=== PATIENT | male | born 1955 | race Caucasian/White ===

== ENCOUNTER 2018-08-06 01:57 | Inpatient (IN) | payer MEDICARE, MEDICAID ==
[~2018-08-06] VITALS: Ht 175.3 cm; Wt 62.0 kg
[2018-08-06] MEDS ORDERED: ASPI-496 PO (02:14)
[2018-08-06] MEDS ORDERED: ALBU0.63 NEB (02:14)
[2018-08-06] MEDS ORDERED: LISI-167 PO (02:14)
[2018-08-06] MEDS ORDERED: PENT400T9 PO (02:14)
--- NOTE | 2018-08-06 02:27 | NUR ---
EUGENIA PTS SON
--- NOTE | 2018-08-06 02:54 | NUR ---
ERP at bedside.
[2018-08-06] MEDS ORDERED: NITROGLYCERIN OINT 2%, 1GM TP ONE ×2 (03:30→03:59)
--- NOTE | 2018-08-06 03:31 | NUR ---
PT TO CTA
[2018-08-06] MEDS ORDERED: OMNIPAQUE 350 MG/ML, 100ML BOTTLE ONE (03:55)
--- NOTE | 2018-08-06 04:51 | NUR ---
LAB AT BEDSIDE
--- NOTE | 2018-08-06 05:13 | NUR ---
PT MOVED TO HOSPITAL BED FOR COMFORT. PT ABLE TO TRANSFER TO CHAIR AND BACK INTO BED. POC DISCUSSED. PT DENIES FURTHER NEEDS AT THIS TIME.
[2018-08-06 05:17] LABS: BASOPHILS # (AUTO) 0.04 x10^3/uL (0-0.1); BASOPHILS % (AUTO) 1 % (0-1); EOSINOPHILS % (AUTO) 2 % (1-7); LYMPHOCYTES # (AUTO) 1.15 x10^3/uL (1-3.4); LYMPHOCYTES % (AUTO) 13 % (22-44); MD NO; MEAN CORPUSCULAR HEMOGLOBIN 32.5 pg (27.5-34.5); MEAN CORPUSCULAR HGB CONC 33.7 g/dL (33.2-36.2); MEAN CORPUSCULAR VOLUME 96.5 fL (81-97); MEAN PLATELET VOLUME 7.4 fL (7.4-10.4); MONOCYTES # (AUTO) 0.57 x10^3/uL (0.2-0.8); MONOCYTES % (AUTO) 6 % (2-9); NEUTROPHILS # (AUTO) 7.28 x10^3/uL (1.8-6.8); NEUTROPHILS % (AUTO) 79 % (42-75); PLATELET COUNT 348 x10^3/uL (130-400); RED BLOOD COUNT 4.66 x10^6/uL (4.38-5.82); RED CELL DISTRIBUTION WIDTH 14.2 % (9.4-14.8)
[2018-08-06 05:25] LABS: INTERNATIONAL NORMALIZED RATIO 0.97 (0.93-1.1); PROTHROMBIN TIME 10.2 Seconds (9.6-11.5)
[2018-08-06 05:27] LABS: ANION GAP 7 mmol/L (5-15); CALCIUM 8.1 mg/dL (8.5-10.1); CHLORIDE 103 mmol/L (98-107); CREATININE 0.86 mg/dL (0.7-1.3)
--- NOTE | 2018-08-06 06:04 | NUR ---
PT SLEEPING. VSS. NAD. AWAITING ADMIT BED.
--- NOTE | 2018-08-06 06:46 | NUR ---
Report from Apolinar BOURGEOIS. Pt resting in bed with eyes closed, resp even and unlabored, NADN. Awaiting bed assignment upstairs.
--- NOTE | 2018-08-06 07:14 | NUR ---
Report called to Lyssa BOURGEOIS on card tele. Floor ready for pt transport.
[2018-08-06 08:35] VITALS: BP 134/80
[2018-08-06] MEDS ORDERED: morphine SULFATE 10 MG/ML, 1ML IVPush PRN (10:30)
[2018-08-06] MEDS ORDERED: ACETAMINOPHEN 325 MG TABLET PO PRN (10:30)
[2018-08-06] MEDS ORDERED: LORazepam 0.5MG TABLET PO PRN (10:30)
[2018-08-06] MEDS ORDERED: LORazepam 2 MG/ML, 1ML IV PRN ×3 (10:30)
[2018-08-06] MEDS ORDERED: NITROGLYCERIN 0.4 MG BOTTLE (25 TABS) SL PRN (10:30)
[2018-08-06] MEDS ORDERED: LORazepam 1MG TABLET PO PRN ×2 (10:30)
[2018-08-06] MEDS ORDERED: MAALOX/HYOSCYAMINE/LIDOCAINE 45 ML BTL PO ONE (10:30)
[2018-08-06] MEDS ORDERED: ONDANSETRON 4 MG TABLET PO PRN (10:30)
[2018-08-06] MEDS ORDERED: ALBUTEROL SULFATE 2.5 MG/3 ML NPPB PRN (10:30)
[2018-08-06] MEDS ORDERED: ONDANSETRON 2MG/ML, 2ML IVPush PRN (10:30)
[2018-08-06 11:46] LABS: TROPONIN I < 0.015 ng/mL (0.000-0.045)
[2018-08-06] MEDS: ENOXAPARIN 40 MG/0.4 ML SQ SCH (12:27)
[2018-08-06] MEDS: NICOTINE 21 MG/24 HR PATCH.TD24 TD SCH (12:27)
[2018-08-06] MEDS: SODIUM CHLORIDE 0.9% 1,000 ML IV SCH (12:28)
[2018-08-06 14:30] VITALS: BP 121/79
[2018-08-06] MEDS: PENTOXIFYLLINE 400 MG TABLET.ER PO SCH ×2 (16:43→20:20)
[2018-08-06 17:13] LABS: TROPONIN I < 0.015 ng/mL (0.000-0.045)
[2018-08-06 20:00] VITALS: BP 127/88
[2018-08-06] MEDS: ATORVASTATIN 40 MG TABLET PO SCH (20:20)
[2018-08-07 03:58] VITALS: BP 172/78
[2018-08-07] MEDS: SODIUM CHLORIDE 0.9% 1,000 ML IV SCH ×2 (05:09→22:35)
[2018-08-07 05:11] VITALS: BP 149/81
[2018-08-07 05:58] LABS: BASOPHILS # (AUTO) 0.05 x10^3/uL (0-0.1); BASOPHILS % (AUTO) 1 % (0-1); EOSINOPHILS # (AUTO) 0.21 x10^3/uL (0-0.4); EOSINOPHILS % (AUTO) 3 % (1-7); LYMPHOCYTES # (AUTO) 1.25 x10^3/uL (1-3.4); LYMPHOCYTES % (AUTO) 16 % (22-44); MD NO; MEAN CORPUSCULAR HEMOGLOBIN 32.1 pg (27.5-34.5); MEAN CORPUSCULAR HGB CONC 33.3 g/dL (33.2-36.2); MEAN CORPUSCULAR VOLUME 96.3 fL (81-97); MEAN PLATELET VOLUME 7.9 fL (7.4-10.4); MONOCYTES # (AUTO) 0.49 x10^3/uL (0.2-0.8); MONOCYTES % (AUTO) 6 % (2-9); NEUTROPHILS # (AUTO) 5.72 x10^3/uL (1.8-6.8); NEUTROPHILS % (AUTO) 74 % (42-75); PLATELET COUNT 330 x10^3/uL (130-400); RED BLOOD COUNT 4.45 x10^6/uL (4.38-5.82); RED CELL DISTRIBUTION WIDTH 13.8 % (9.4-14.8)
[2018-08-07 06:04] LABS: ANION GAP 7 mmol/L (5-15); CALCIUM 8.8 mg/dL (8.5-10.1); CHLORIDE 106 mmol/L (98-107); CHOLESTEROL, TOTAL 163 mg/dL (140-239); CREATININE 0.74 mg/dL (0.7-1.3)
[2018-08-07 06:06] LABS: CHOL/HDL RATIO 2.6; HDL CHOL % 39 % (26-37); HDL CHOLESTEROL (DIRECT) 63 mg/dL (40-60); LDL CHOLESTEROL,CALCULATED 80 mg/dL (54-169); LDL/HDL RATIO 1.3 (0.5-3.0); TRIGLYCERIDES 101 mg/dL (50-200); VLDL CHOLESTEROL 20 mg/dL (0-25)
[2018-08-07 06:58] VITALS: BP 149/79
[2018-08-07] MEDS: PENTOXIFYLLINE 400 MG TABLET.ER PO SCH ×3 (07:40→22:34)
[2018-08-07] MEDS: THIAMINE 100MG TABLET PO SCH (07:40)
[2018-08-07] MEDS ORDERED: LISINOPRIL 20 MG TABLET PO SCH (09:00)
[2018-08-07] MEDS ORDERED: ASPIRIN 325 MG TABLET EC PO SCH (09:00)
[2018-08-07] MEDS ORDERED: REGADENOSON 0.4 MG/5 ML SYRINGE ONE (09:35)
[2018-08-07] MEDS: NICOTINE 21 MG/24 HR PATCH.TD24 TD SCH (12:11)
[2018-08-07] MEDS: AMLODIPINE 2.5 MG TABLET PO SCH (12:40)
[2018-08-07] MEDS: ENOXAPARIN 40 MG/0.4 ML SQ SCH (12:40)
[2018-08-07 14:03] VITALS: BP 122/78
[2018-08-07 18:23] VITALS: BP 101/66
[2018-08-07 20:16] VITALS: BP 124/73
[2018-08-07] MEDS: ATORVASTATIN 40 MG TABLET PO SCH (22:34)
[2018-08-08 01:41] VITALS: BP 131/80
[2018-08-08 06:59] VITALS: BP 134/78
[2018-08-08] MEDS: AMLODIPINE 2.5 MG TABLET PO SCH (09:00)
[2018-08-08] MEDS: PENTOXIFYLLINE 400 MG TABLET.ER PO SCH ×3 (09:00→20:41)
[2018-08-08] MEDS: ASPIRIN 81 MG TABLET EC PO SCH (09:00)
[2018-08-08] MEDS: THIAMINE 100MG TABLET PO SCH (09:01)
[2018-08-08] MEDS: LISINOPRIL 20 MG TABLET PO SCH (09:01)
[2018-08-08] MEDS: NICOTINE 21 MG/24 HR PATCH.TD24 TD SCH (10:30)
[2018-08-08] MEDS ORDERED: BISACODYL 10 MG SUPP PR PRN (11:30)
[2018-08-08] MEDS ORDERED: MAGNESIUM CITRATE 300ML ORAL SOL PO ONE (11:30)
[2018-08-08] MEDS ORDERED: MAGNESIUM CITRATE 300ML ORAL SOL ONE (11:35)
[2018-08-08] MEDS: ENOXAPARIN 40 MG/0.4 ML SQ SCH (11:37)
[2018-08-08 12:02] VITALS: BP 117/80
[2018-08-08] MEDS: SODIUM CHLORIDE 0.9% 1,000 ML IV SCH (15:23)
[2018-08-08 19:22] VITALS: BP 117/66
[2018-08-08] MEDS: ATORVASTATIN 40 MG TABLET PO SCH (20:41)
[2018-08-09 00:33] VITALS: BP 125/82
[2018-08-09 07:32] VITALS: BP 147/97
[2018-08-09] MEDS: SODIUM CHLORIDE 0.9% 1,000 ML IV SCH (08:40)
[2018-08-09] MEDS: AMLODIPINE 2.5 MG TABLET PO SCH (09:14)
[2018-08-09] MEDS: ASPIRIN 81 MG TABLET EC PO SCH (09:14)
[2018-08-09] MEDS: PENTOXIFYLLINE 400 MG TABLET.ER PO SCH ×2 (09:14→15:34)
[2018-08-09] MEDS: THIAMINE 100MG TABLET PO SCH (09:14)
[2018-08-09] MEDS: NICOTINE 21 MG/24 HR PATCH.TD24 TD SCH (09:15)
[2018-08-09] MEDS: LISINOPRIL 20 MG TABLET PO SCH (09:15)
[2018-08-09] MEDS: ENOXAPARIN 40 MG/0.4 ML SQ SCH (12:22)
[2018-08-09 12:23] VITALS: BP 134/66
[2018-08-09] MEDS ORDERED: METOPROLOL SUCCINATE 25 MG TAB.ER.24H PO SCH (14:30)
[2018-08-09] MEDS ORDERED: NITR0.4T SL (15:44)
[2018-08-09] MEDS ORDERED: ATOR40TA78 PO (15:44)
[2018-08-09] MEDS ORDERED: METO25TA91 PO (15:44)
[2018-08-09] MEDS ORDERED: ONDA4TAB12 PO (15:44)
[2018-08-09] MEDS ORDERED: THIA100T67 PO (15:44)
[2018-08-09] MEDS ORDERED: FOLI-17 PO (15:44)
[2018-08-09] MEDS ORDERED: MULT1TAB60 PO (15:44)
== END 2018-08-09 18:35 | disposition home or self-care (01) | DRG 189 ==
LOC: ED 04:59 → EDIP 05:00 → 5SO 07:33 → 4WST 08-07 20:10
PROVIDERS: ADMIT Internal Medicine; ATTEND Internal Medicine
DX: J96.00 Acute respiratory failure, unspecified whether with hypoxia or hypercapnia (principal); J44.1 Chronic obstructive pulmonary disease with (acute) exacerbation; F10.20 Alcohol dependence, uncomplicated; G47.30 Sleep apnea, unspecified; Z88.6 Allergy status to analgesic agent; F17.200 Nicotine dependence, unspecified, uncomplicated; I10 Essential (primary) hypertension; I25.10 Atherosclerotic heart disease of native coronary artery without angina pectoris; I45.4 Nonspecific intraventricular block; I73.9 Peripheral vascular disease, unspecified; R56.9 Unspecified convulsions; Z79.82 Long term (current) use of aspirin; Z82.3 Family history of stroke; Z83.3 Family history of diabetes mellitus; Z85.46 Personal history of malignant neoplasm of prostate; Z86.14 Personal history of Methicillin resistant Staphylococcus aureus infection; R07.89 Other chest pain
CPT/HCPCS: 0399T; 36415; 71275; 78452; 80048; 80061; 84484; 85025; 85610; 85730; 93005; 93017; 93306; 99285; G0378; J1650; J2785; Q9967; A9502; C9898; J7030